=== PATIENT | male | born 1945 | race Caucasian/White ===

== ENCOUNTER → 2018-03-10 | Outpatient (CLI) | payer MEDICARE ==
[~2018-03-10] MED LIST: ALBU8.5H8 INH; ASPI-496 PO; GUAI400T66 PO; LANS30CA PO; LISI-167 PO; LISI5TAB7 PO; LORA10TA75 PO; MULT-717 PO; SUCR1TAB PO
[2018-03-10 15:01] LABS: ALANINE AMINOTRANSFERASE 36 U/L (12-78); ALBUMIN 3.9 g/dL (3.4-5.0); ANION GAP 5 mmol/L (5-15); CALCIUM 9.4 mg/dL (8.5-10.1); CHLORIDE 108 mmol/L (98-107); CREATININE 1.06 mg/dL (0.7-1.3)
[2018-03-10 15:04] LABS: ALKALINE PHOSPHATASE 72 U/L (45-117); BILIRUBIN,TOTAL 0.4 mg/dL (0.2-1.0); TOTAL PROTEIN 7.4 g/dL (6.4-8.2)
== END | disposition home or self-care (01) ==
LOC: STAR 13:41
PROVIDERS: ATTEND Orthopaedic Surgery
DX: Z01.818 Encounter for other preprocedural examination (principal); M65.341 Trigger finger, right ring finger; G56.01 Carpal tunnel syndrome, right upper limb
CPT/HCPCS: 36415; 80053; 93005

== ENCOUNTER 2018-03-20 10:53 | Day surgery (SDC) | payer MEDICARE ==
[~2018-03-20] VITALS: Ht 175.3 cm; Wt 85.2 kg
[2018-03-20 11:22] VITALS: BP 146/81
[2018-03-20] MEDS ORDERED: LACTATED RINGERS 1,000 ML IV SCH (11:26)
[2018-03-20] MEDS ORDERED: LIDOCAINE/PF 1%, 30ML ONE (12:35)
[2018-03-20] MEDS ORDERED: BUPIVACAINE/PF 0.5% ONE (12:35)
[2018-03-20] MEDS ORDERED: MIDAZOLAM 1 MG/ML, 2ML ONE (12:57)
[2018-03-20] MEDS ORDERED: FENTANYL PF 100 MCG/2ML ONE (12:57)
[2018-03-20] MEDS ORDERED: OXYcodone 5 MG/5 ML ORAL.SOL UDC ONE (13:54)
[2018-03-20] MEDS ORDERED: ACETAMINOPHEN 650 MG/20.3 ML UDC ONE (13:54)
[2018-03-20] MEDS ORDERED: OXYcodone 5 MG/5 ML ORAL.SOL UDC PO PRN (14:00)
[2018-03-20] MEDS ORDERED: ONDANSETRON ODT 8 MG PO PRN (14:00)
[2018-03-20] MEDS ORDERED: FENTANYL PF 100 MCG/2ML IV PRN (14:00)
[2018-03-20] MEDS ORDERED: ACETAMINOPHEN 325 MG TABLET PO PRN (14:00)
[2018-03-20] MEDS ORDERED: PROPOFOL 10 MG/ML, 20ML ONE (15:38)
== END 2018-03-20 15:30 | disposition home or self-care (01) ==
LOC: OUT 10:53
PROVIDERS: ATTEND Orthopaedic Surgery
DX: G56.01 Carpal tunnel syndrome, right upper limb (principal); M65.341 Trigger finger, right ring finger; J45.909 Unspecified asthma, uncomplicated; K21.9 Gastro-esophageal reflux disease without esophagitis; I10 Essential (primary) hypertension; Z87.39 Personal history of other diseases of the musculoskeletal system and connective tissue; Z98.890 Other specified postprocedural states; Z79.82 Long term (current) use of aspirin; Z79.899 Other long term (current) drug therapy; Z95.2 Presence of prosthetic heart valve
CPT/HCPCS: 26055; 29848; J2250; J2704; J3010; J3490

== ENCOUNTER 2018-05-07 17:32 | Emergency (ER) | payer MEDICARE ==
[~2018-05-07] VITALS: Ht 175.3 cm; Wt 83.0 kg
[2018-05-07] MEDS ORDERED: SODIUM CHLORIDE FLUSH 10ML SYR IVF ONE (18:30)
[2018-05-07 18:35] LABS: BASOPHILS # (AUTO) 0.03 x10^3/uL (0-0.1); BASOPHILS % (AUTO) 0 % (0-1); EOSINOPHILS # (AUTO) 0.07 x10^3/uL (0-0.4); EOSINOPHILS % (AUTO) 0 % (1-7); LYMPHOCYTES # (AUTO) 1.16 x10^3/uL (1-3.4); LYMPHOCYTES % (AUTO) 7 % (22-44); MD NO; MEAN CORPUSCULAR HEMOGLOBIN 31.3 pg (27.5-34.5); MEAN CORPUSCULAR HGB CONC 33.4 g/dL (33.2-36.2); MEAN CORPUSCULAR VOLUME 93.8 fL (81-97); MEAN PLATELET VOLUME 8.1 fL (7.4-10.4); MONOCYTES # (AUTO) 0.68 x10^3/uL (0.2-0.8); MONOCYTES % (AUTO) 4 % (2-9); NEUTROPHILS # (AUTO) 15.04 x10^3/uL (1.8-6.8); NEUTROPHILS % (AUTO) 89 % (42-75); PLATELET COUNT 234 x10^3/uL (130-400); RED BLOOD COUNT 5.46 x10^6/uL (4.38-5.82)
[2018-05-07 18:46] LABS: ALANINE AMINOTRANSFERASE 40 U/L (12-78); ALBUMIN 3.8 g/dL (3.4-5.0); ANION GAP 8 mmol/L (5-15); CHLORIDE 109 mmol/L (98-107); CREATININE 1.16 mg/dL (0.7-1.3)
[2018-05-07 18:48] LABS: ALKALINE PHOSPHATASE 80 U/L (45-117); BILIRUBIN,TOTAL 0.8 mg/dL (0.2-1.0); TOTAL PROTEIN 7.5 g/dL (6.4-8.2)
[2018-05-07 19:46] VITALS: BP 128/78
== END 2018-05-07 19:48 | disposition home or self-care (01) ==
LOC: ED 19:33
DX: K64.4 Residual hemorrhoidal skin tags (principal); K21.9 Gastro-esophageal reflux disease without esophagitis; Z95.2 Presence of prosthetic heart valve
CPT/HCPCS: 36415; 80053; 85025; 93005; 99285

== ENCOUNTER → 2018-06-15 | Outpatient (CLI) | payer MEDICARE | END | disposition home or self-care (01) | LOC: CFH 12:40 | PROVIDERS: ATTEND Internal Medicine Cardiovascular Disease | DX: I07.1 Rheumatic tricuspid insufficiency (principal); I10 Essential (primary) hypertension; Z95.2 Presence of prosthetic heart valve | CPT/HCPCS: 93306 ==

== ENCOUNTER → 2019-06-14 | Outpatient (CLI) | payer MEDICARE ==
[~2019-06-14] MED LIST changes: +FLUT200B INH; +LEVA15HF5 INH; +OMEP-110 PO; +TIOT18CA INH
[2019-06-14 14:37] LABS: ALANINE AMINOTRANSFERASE 31 U/L (12-78); ALBUMIN 3.8 g/dL (3.4-5.0); ANION GAP 5 mmol/L (5-15); CALCIUM 8.9 mg/dL (8.5-10.1); CHLORIDE 112 mmol/L (98-107); CREATININE 1.13 mg/dL (0.7-1.3)
[2019-06-14 14:40] LABS: ALKALINE PHOSPHATASE 75 U/L (45-117); BILIRUBIN,TOTAL 0.6 mg/dL (0.2-1.0); TOTAL PROTEIN 6.9 g/dL (6.4-8.2)
== END | disposition home or self-care (01) ==
LOC: STAR 13:27
PROVIDERS: ATTEND Thoracic Surgery (Cardiothoracic Vascular Surgery)
DX: I45.10 Unspecified right bundle-branch block (principal); I44.4 Left anterior fascicular block; Z83.3 Family history of diabetes mellitus; Z82.49 Family history of ischemic heart disease and other diseases of the circulatory system
CPT/HCPCS: 36415; 80053; 93005

== ENCOUNTER 2019-08-18 17:47 | Emergency (ER) | payer MEDICARE ==
[~2019-08-18] VITALS: Ht 175.3 cm; Wt 84.3 kg
[2019-08-18] MEDS ORDERED: ADENOSINE 6 MG/2 ML ONE (18:24)
[2019-08-18] MEDS ORDERED: ADENOSINE 6 MG/2 ML IVPush ONE ×2 (18:30)
[2019-08-18] MEDS ORDERED: SODIUM CHLORIDE 0.9% 1,000ML IVBOLUS ONE (18:30)
[2019-08-18] MEDS ORDERED: SODIUM CHLORIDE FLUSH 10ML SYR IVF ONE (18:30)
[2019-08-18] MEDS ORDERED: DILTIAZEM 5 MG/ML, 10ML ONE (18:47)
[2019-08-18] MEDS ORDERED: PROPOFOL 10 MG/ML, 20ML ONE (18:47)
--- NOTE | 2019-08-18 18:50 | NUR ---
report given to kimmie
[2019-08-18 18:59] LABS: BASOPHILS # (AUTO) 0.08 x10^3/uL (0-0.1); BASOPHILS % (AUTO) 1 % (0-1); EOSINOPHILS # (AUTO) 0.22 x10^3/uL (0-0.4); EOSINOPHILS % (AUTO) 2 % (1-7); LYMPHOCYTES # (AUTO) 2.22 x10^3/uL (1-3.4); LYMPHOCYTES % (AUTO) 17 % (22-44); MD NO; MEAN CORPUSCULAR HEMOGLOBIN 31.3 pg (27.5-34.5); MEAN CORPUSCULAR VOLUME 94.6 fL (81-97); MEAN PLATELET VOLUME 8.5 fL (7.4-10.4); MONOCYTES # (AUTO) 0.67 x10^3/uL (0.2-0.8); MONOCYTES % (AUTO) 5 % (2-9); NEUTROPHILS # (AUTO) 10.06 x10^3/uL (1.8-6.8); NEUTROPHILS % (AUTO) 76 % (42-75); PLATELET COUNT 263 x10^3/uL (130-400); RED BLOOD COUNT 5.31 x10^6/uL (4.38-5.82); RED CELL DISTRIBUTION WIDTH 14.2 % (9.4-14.8)
[2019-08-18] MEDS ORDERED: DILTIAZEM 5 MG/ML, 5ML IVPush ONE (19:00)
[2019-08-18] MEDS ORDERED: PROPOFOL 10 MG/ML, 20ML IVPush ONE (19:00)
[2019-08-18 19:01] LABS: ALANINE AMINOTRANSFERASE 40 U/L (12-78); ANION GAP 9 mmol/L (5-15); CHLORIDE 106 mmol/L (98-107); CREATININE 1.15 mg/dL (0.7-1.3)
[2019-08-18 19:03] LABS: ALKALINE PHOSPHATASE 78 U/L (45-117); BILIRUBIN,TOTAL 0.6 mg/dL (0.2-1.0); TOTAL PROTEIN 7.5 g/dL (6.4-8.2)
[2019-08-18 19:07] LABS: INTERNATIONAL NORMALIZED RATIO 1.01 (0.93-1.1); PROTHROMBIN TIME 10.6 Seconds (9.6-11.5)
[2019-08-18 19:14] VITALS: BP 122/89
--- NOTE | 2019-08-18 19:23 | NUR ---
ASSUMED CARE OF PT S/P CARDIOVERSION. PT CURRENTLY A&O X 4, DENIES C/O PAIN, DENIES FEELING "THAT HEAVY FEELING IN MY CHEST." PT CURRENTLY ON 2L OXYGEN, REMAINS ON [employer]PER[employer]OR [employer] AT THIS TIME.
--- NOTE | 2019-08-18 19:26 | NUR ---
PT RESTING QUIETLY AT THIS TIME, TALKING TO SPOUSE WITHOUT DIFFICULTY.
[2019-08-18] MEDS ORDERED: APIXABAN 5 MG TABLET PO ONE (19:30)
[2019-08-18] MEDS ORDERED: APIXABAN 5 MG TABLET ONE (19:47)
--- NOTE | 2019-08-18 19:50 | NUR ---
PT MEDICATED ORDERED. PT PLACED ON RA. CONTINUES TO DENY C/O PAIN AT THIS TIME.
--- NOTE | 2019-08-18 19:56 | NUR ---
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 SUCTION ON AND READY FOR USE. PLACED ON 4L OXYGEN W/ ET CO2 IN PLACE. PIV PATENT AND FLUSHING WELL. SPOUSE PREFERS TO REMAIN IN ROOM W/ PT. 1903: PT GIVEN PROPOFOL 50MG BY ERP 1904: PT GIVEN PROPOFOL 15MG BY ERP 1906: SYNCHRONIZED CARDIOVERSION AT 150J PER ERP V.O. 1907: CYBER SYSTEMS ADMINISTRATOR SHOWS SR, CONFIRMED BY ERP 1912: PT AWAKE, ALERT AND ORIENTED X 4
--- NOTE | 2019-08-18 20:22 | NUR ---
PT DENIES C/O PAIN, DENIES FEELING SHORT OF BREATH. REVIEWED DISCHARGE INSTRUCTIONS AND PRESCRIPTIONS W/ PT AND SPOUSE, VERBALIZED UNDERSTANDING TO INFORMATION PROVIDED INCLUDING FOLLOW UP CARE, RETURN PRECAUTIONS AND PRECAUTIONS W/ MEDICATIONS. PT REPORTS HX OF ELIQUIS AND IS AWARE OF SAFETY PRECATUIONS. DISCUSSED POST-SEDATION PRECAUTIONS W/ SPOUSE, VERBALIZED UNDERSTANDING TO INFORMATION PROVIDED. PT AND SPOUSE DENIED QUESTIONS/CONCERNS. PT ABLE TO DRINK WATER WITHOUT DIFFICULTY, AMBULATED FROM ED W/ SPOUSE WITHOUT ANY DIFFICULTY NOTED.
== END 2019-08-18 20:26 | disposition home or self-care (01) ==
LOC: ED 20:00
DX: I48.92 Unspecified atrial flutter (principal); I10 Essential (primary) hypertension; K21.9 Gastro-esophageal reflux disease without esophagitis; Z98.61 Coronary angioplasty status
CPT/HCPCS: 36415; 71045; 80053; 85025; 85610; 85730; 92960; 93005; 96374; 96375; 99285; J0153; J2704; J7030; 99284

== ENCOUNTER 2019-10-10 18:55 | Observation (INO) | payer MEDICARE ==
[~2019-10-10] VITALS: Ht 175.3 cm; Wt 86.5 kg
[2019-10-10 11:39] VITALS: BP_SYST 127; BP_SYST 130; BP_SYST 147; BP_DIAS 86; BP_DIAS 98
[~2019-10-10 18:55] MED LIST changes: -GUAI400T66 PO; +GUAI400T81 PO
--- NOTE | 2019-10-10 19:19 | NUR ---
Pt came in for "passing out" episode, pt is awake, alert and oriented x4, asked for O2, states he feels he needs oxygen. Placed 2L NC, vitals monitors placed. Pt to CT.
[2019-10-10] MEDS ORDERED: DILT120C64 PO (20:05)
[2019-10-10] MEDS ORDERED: LISI-167 PO (20:05)
[2019-10-10] MEDS ORDERED: FLUT50BL INH (20:05)
--- NOTE | 2019-10-10 20:36 | NUR ---
IV placed. Pt resting in [facility] in no acute distress, spouse at bedside. Call light within reach.
[2019-10-10 20:37] LABS: BASOPHILS # (AUTO) 0.03 x10^3/uL (0-0.1); BASOPHILS % (AUTO) 0 % (0-1); EOSINOPHILS # (AUTO) 0.07 x10^3/uL (0-0.4); EOSINOPHILS % (AUTO) 1 % (1-7); LYMPHOCYTES # (AUTO) 1.06 x10^3/uL (1-3.4); LYMPHOCYTES % (AUTO) 7 % (22-44); MD NO; MEAN CORPUSCULAR HEMOGLOBIN 31.7 pg (27.5-34.5); MEAN CORPUSCULAR HGB CONC 33.3 g/dL (33.2-36.2); MEAN CORPUSCULAR VOLUME 95.1 fL (81-97); MEAN PLATELET VOLUME 7.8 fL (7.4-10.4); MONOCYTES # (AUTO) 0.53 x10^3/uL (0.2-0.8); MONOCYTES % (AUTO) 4 % (2-9); NEUTROPHILS # (AUTO) 12.95 x10^3/uL (1.8-6.8); NEUTROPHILS % (AUTO) 89 % (42-75); PLATELET COUNT 218 x10^3/uL (130-400); RED BLOOD COUNT 4.91 x10^6/uL (4.38-5.82); RED CELL DISTRIBUTION WIDTH 14.3 % (9.4-14.8)
[2019-10-10 20:43] LABS: ALANINE AMINOTRANSFERASE 34 U/L (12-78); ALBUMIN 3.5 g/dL (3.4-5.0); ANION GAP 8 mmol/L (5-15); CALCIUM 9.1 mg/dL (8.5-10.1); CHLORIDE 107 mmol/L (98-107); CREATININE 1.01 mg/dL (0.7-1.3)
[2019-10-10 20:44] LABS: D-DIMER 0.73 ug/mlFEU (0.00-0.52); INTERNATIONAL NORMALIZED RATIO 1.01 (0.93-1.1); PROTHROMBIN TIME 10.7 Seconds (9.6-11.5)
[2019-10-10 20:48] LABS: ALKALINE PHOSPHATASE 59 U/L (45-117); BILIRUBIN,TOTAL 0.4 mg/dL (0.2-1.0); TOTAL PROTEIN 6.7 g/dL (6.4-8.2); TROPONIN I < 0.015 ng/mL (0.000-0.045)
--- NOTE | 2019-10-10 21:28 | NUR ---
Pt to CT.
--- NOTE | 2019-10-10 22:44 | NUR ---
Report given to Edwige NAIK.
[2019-10-10] MEDS ORDERED: ACETAMINOPHEN 325 MG TABLET PO PRN (23:00)
[2019-10-10] MEDS ORDERED: ONDANSETRON ODT 4 MG PO PRN (23:00)
[2019-10-10] MEDS ORDERED: BISACODYL 10 MG SUPP PR PRN (23:00)
[2019-10-10] MEDS ORDERED: POLYETHYLENE GLYCOL 17 GM PACKET PO PRN (23:00)
[2019-10-10] MEDS ORDERED: LEVALBUTEROL TARTRATE 0.63 MG INH SCH (23:00)
[2019-10-10] MEDS ORDERED: LISINOPRIL 10 MG TABLET PO SCH (23:00)
[2019-10-10] MEDS ORDERED: OMNIPAQUE 350 MG/ML, 100ML BOTTLE ONE (23:51)
[2019-10-10] MEDS: SODIUM CHLORIDE FLUSH 10ML SYR IVF SCH (23:59)
[2019-10-11] VITALS (8 sets, daily range): BP systolic 127–147; BP diastolic 79–94
[2019-10-11] MEDS ORDERED: ALBUTEROL/IPRATROPIUM 2.5MG/0.5MG, 3 ML NPPB PRN (01:30)
[2019-10-11] MEDS ORDERED: PROAIR INH PRN (01:30)
[2019-10-11 01:53] LABS: BASOPHILS # (AUTO) 0.03 x10^3/uL (0-0.1); BASOPHILS % (AUTO) 0 % (0-1); EOSINOPHILS # (AUTO) 0.11 x10^3/uL (0-0.4); EOSINOPHILS % (AUTO) 1 % (1-7); LYMPHOCYTES # (AUTO) 1.67 x10^3/uL (1-3.4); LYMPHOCYTES % (AUTO) 16 % (22-44); MD NO; MEAN CORPUSCULAR HEMOGLOBIN 31.7 pg (27.5-34.5); MEAN CORPUSCULAR HGB CONC 33.8 g/dL (33.2-36.2); MEAN CORPUSCULAR VOLUME 94.1 fL (81-97); MEAN PLATELET VOLUME 7.4 fL (7.4-10.4); MONOCYTES # (AUTO) 0.58 x10^3/uL (0.2-0.8); MONOCYTES % (AUTO) 6 % (2-9); NEUTROPHILS # (AUTO) 7.88 x10^3/uL (1.8-6.8); NEUTROPHILS % (AUTO) 77 % (42-75); PLATELET COUNT 219 x10^3/uL (130-400); RED BLOOD COUNT 4.76 x10^6/uL (4.38-5.82); RED CELL DISTRIBUTION WIDTH 14.4 % (9.4-14.8)
[2019-10-11 02:08] LABS: TROPONIN I < 0.015 ng/mL (0.000-0.045)
[2019-10-11 03:08] LABS: ANION GAP 8 mmol/L (5-15); CALCIUM 9.3 mg/dL (8.5-10.1); CHLORIDE 108 mmol/L (98-107); CREATININE 0.96 mg/dL (0.7-1.3)
[2019-10-11] MEDS: SODIUM CHLORIDE FLUSH 10ML SYR IVF SCH (08:06)
[2019-10-11 08:22] LABS: TROPONIN I < 0.015 ng/mL (0.000-0.045)
[2019-10-11] MEDS ORDERED: LORATADINE 10 MG TABLET PO SCH (09:00)
[2019-10-11] MEDS ORDERED: SENNA/DOCUSATE TABLET PO SCH (09:00)
[2019-10-11] MEDS ORDERED: MULTIVITAMINS/MINERALS TABLET PO SCH (09:00)
[2019-10-11] MEDS ORDERED: ASPIRIN 81 MG TABLET EC PO SCH (09:00)
[2019-10-11] MEDS ORDERED: DILTIAZEM 120 MG CAP.ER.24H PO SCH (09:00)
[2019-10-11] MEDS ORDERED: BUDESONIDE 0.5 MG/2 ML INHA NPPB SCH (09:00)
== END 2019-10-11 18:31 | disposition home or self-care (01) ==
LOC: ED 21:17 → INTOOBSV 22:09 → EDIP 22:09 → 4WST 23:22
PROVIDERS: ADMIT Family Medicine; ATTEND Family Medicine
DX: R55 Syncope and collapse (principal); D72.829 Elevated white blood cell count, unspecified; I48.0 Paroxysmal atrial fibrillation; I10 Essential (primary) hypertension; D68.69 Other thrombophilia; R42 Dizziness and giddiness; I71.9 Aortic aneurysm of unspecified site, without rupture; J45.909 Unspecified asthma, uncomplicated; Z95.2 Presence of prosthetic heart valve; Z79.82 Long term (current) use of aspirin; Z79.899 Other long term (current) drug therapy
CPT/HCPCS: 36415; 70450; 70551; 71275; 72125; 80048; 80053; 84484; 85025; 85379; 85610; 85730; 93005; 93880; 94640; 99285; G0378; J7626; Q9967

== ENCOUNTER 2020-09-27 14:39 | Observation (INO) | payer MEDICARE ==
[~2020-09-27] VITALS: Ht 175.3 cm; Wt 88.0 kg
[~2020-09-27 14:39] MED LIST changes: +DILT120C64 PO; +FLUT50BL INH
[2020-09-27 15:31] LABS: BASOPHILS % (AUTO) 1 % (0-1); EOSINOPHILS % (AUTO) 1 % (1-7); LYMPHOCYTES % (AUTO) 11 % (22-44); MEAN CORPUSCULAR HGB CONC 33.6 g/dL (33.2-36.2); MEAN PLATELET VOLUME 7.6 fL (7.4-10.4); MONOCYTES % (AUTO) 7 % (2-9); NEUTROPHILS % (AUTO) 81 % (42-75); PLATELET COUNT 249 x10^3/uL (130-400); RED BLOOD COUNT 5.08 x10^6/uL (4.38-5.82); RED CELL DISTRIBUTION WIDTH 13.5 % (9.4-14.8)
[2020-09-27 15:32] LABS: MD NO
[2020-09-27 15:39] LABS: ALBUMIN 3.9 g/dL (3.4-5.0); ANION GAP 9 mmol/L (5-15); CALCIUM 8.9 mg/dL (8.5-10.1); CHLORIDE 105 mmol/L (98-107)
[2020-09-27 15:44] LABS: CREATININE 1.11 mg/dL (0.7-1.3); TROPONIN I < 0.015 ng/mL (0.000-0.045)
--- NOTE | 2020-09-27 16:06 | NUR ---
senior packaging engineer: pt from lobby to room 18
--- NOTE | 2020-09-27 16:18 | NUR ---
PT WAS OUTSIDE W . PT STATES HE PASSED OUT SITTING IN CHAIR. NO FALL. DENIES CP OR N/V. STATES THIS HAPPENED LAST YEAR. HX OF ASTHMA AND ALLERGIES. ON STORE SALES CONSULTANT.
--- NOTE | 2020-09-27 17:30 | NUR ---
PT RESTING, POC FOR ADMIT. DENIES CP OR DIZZYNESS
[2020-09-27] MEDS ORDERED: BUDE10.2 PO (17:42)
[2020-09-27] MEDS ORDERED: OMEP20CA20 PO (17:42)
[2020-09-27] MEDS ORDERED: GUAI12009 PO (17:42)
[2020-09-27] MEDS ORDERED: TAMS-11 PO (17:42)
--- NOTE | 2020-09-27 18:42 | NUR ---
[facility] AT BEDSIDE.
--- NOTE | 2020-09-27 18:47 | NUR ---
BEDSIDE REPORT RECEIVED FROM LEIDY NAIK
--- NOTE | 2020-09-27 19:04 | NUR ---
HOSPITALIST AT BEDSIDE
[2020-09-27 19:28] VITALS: BP 134/91
[2020-09-27] MEDS ORDERED: ACETAMINOPHEN 325 MG TABLET PO PRN (19:30)
[2020-09-27] MEDS ORDERED: GUAIFENESIN/DM 200-20MG, 10ML UDC PO PRN (19:30)
[2020-09-27 19:35] VITALS: BP_SYST 108; BP_SYST 110; BP_SYST 139; BP_DIAS 76; BP_DIAS 78; BP_DIAS 87
[2020-09-27] MEDS ORDERED: ENOXAPARIN 40 MG/0.4 ML SQ SCH (20:00)
[2020-09-27 20:32] LABS: TROPONIN I < 0.015 ng/mL (0.000-0.045)
[2020-09-27] MEDS: FAMOTIDINE 20 MG TABLET PO SCH (21:00)
[2020-09-27 21:43] VITALS: BP 134/91
[2020-09-27] MEDS ORDERED: ALBUTEROL HFA 90 MCG/SPRAY INH PRN (23:00)
[2020-09-28 01:32] VITALS: BP_SYST 115; BP_SYST 128; BP_SYST 133; BP_DIAS 33; BP_DIAS 74; BP_DIAS 88
[2020-09-28 01:55] LABS: TROPONIN I < 0.015 ng/mL (0.000-0.045)
[2020-09-28 05:44] LABS: BASOPHILS % (AUTO) 1 % (0-1); EOSINOPHILS % (AUTO) 2 % (1-7); LYMPHOCYTES % (AUTO) 20 % (22-44); MEAN CORPUSCULAR HGB CONC 33.4 g/dL (33.2-36.2); MEAN PLATELET VOLUME 7.7 fL (7.4-10.4); MONOCYTES % (AUTO) 7 % (2-9); NEUTROPHILS % (AUTO) 71 % (42-75); PLATELET COUNT 233 x10^3/uL (130-400); RED BLOOD COUNT 4.86 x10^6/uL (4.38-5.82); RED CELL DISTRIBUTION WIDTH 13.8 % (9.4-14.8)
[2020-09-28 05:48] LABS: MD NO
[2020-09-28 05:57] LABS: CHLORIDE 110 mmol/L (98-107)
[2020-09-28 06:14] LABS: ALANINE AMINOTRANSFERASE 27 U/L (12-78); ALBUMIN 3.3 g/dL (3.4-5.0); ALKALINE PHOSPHATASE 83 U/L (45-117); ANION GAP 7 mmol/L (5-15); BILIRUBIN,TOTAL 0.5 mg/dL (0.2-1.0); CALCIUM 9.3 mg/dL (8.5-10.1); CREATININE 0.99 mg/dL (0.7-1.3); TOTAL PROTEIN 6.4 g/dL (6.4-8.2)
[2020-09-28] MEDS ORDERED: OMEPRAZOLE 20 MG CAPSULE.DR PO SCH (07:00)
[2020-09-28 07:10] VITALS: BP 131/87
[2020-09-28] MEDS: FAMOTIDINE 20 MG TABLET PO SCH (08:13)
[2020-09-28 08:30] VITALS: BP 134/92
[2020-09-28 08:35] VITALS: BP 144/88
[2020-09-28 08:40] VITALS: BP 118/85
[2020-09-28] MEDS ORDERED: TAMSULOSIN 0.4 MG CAP.ER.24H PO SCH (09:00)
[2020-09-28] MEDS ORDERED: LISINOPRIL 10 MG TABLET PO SCH ×2 (09:00)
[2020-09-28] MEDS ORDERED: ASPIRIN 81 MG TABLET EC PO SCH (09:00)
[2020-09-28] MEDS ORDERED: FLUTICASONE/VILANTEROL 100-25MCG/INH INH SCH (09:00)
[2020-09-28] MEDS ORDERED: TIOTROPIUM BROMIDE 18 MCG/INH INH SCH (09:00)
[2020-09-28] MEDS ORDERED: LORATADINE 10 MG TABLET PO SCH (09:00)
[2020-09-28 13:25] VITALS: BP 130/80
== END 2020-09-28 14:50 | disposition home or self-care (01) ==
LOC: ED 17:04 → INTOOBSV 17:41 → EDIP 17:41 → 5SO 19:19 → DCLOUNGE 09-28 14:42
PROVIDERS: ADMIT Internal Medicine; ATTEND Internal Medicine
DX: R55 Syncope and collapse (principal); D72.829 Elevated white blood cell count, unspecified; I10 Essential (primary) hypertension; G43.109 Migraine with aura, not intractable, without status migrainosus; J45.909 Unspecified asthma, uncomplicated; K21.9 Gastro-esophageal reflux disease without esophagitis; I49.3 Ventricular premature depolarization; I48.92 Unspecified atrial flutter; H54.7 Unspecified visual loss; Z95.3 Presence of xenogenic heart valve; Z79.82 Long term (current) use of aspirin; Z79.899 Other long term (current) drug therapy; Z87.891 Personal history of nicotine dependence; Z86.79 Personal history of other diseases of the circulatory system; Z87.19 Personal history of other diseases of the digestive system
CPT/HCPCS: 36415; 71045; 80048; 80053; 82040; 83735; 83880; 84100; 84443; 84484; 85025; 93005; 93306; 96372; 99285; G0378; J1650

== ENCOUNTER 2020-10-11 13:11 | Emergency (ER) | payer MEDICARE ==
[~2020-10-11] VITALS: Ht 175.3 cm; Wt 97.8 kg
[~2020-10-11 13:11] MED LIST changes: +BUDE10.2 PO; +GUAI12009 PO; +OMEP20CA20 PO; +TAMS-11 PO
--- NOTE | 2020-10-11 13:51 | NUR ---
culinary intern: pt from lobby to room 38
--- NOTE | 2020-10-11 14:06 | NUR ---
PT BROUGHT TO ROOM. WITH . STATES HE HAS HAD SYNCOPE EPISOIDES IN THE PAST.
[2020-10-11] MEDS ORDERED: DIPH,PERTUSS(ACELL),TET VAC/PF 0.5 ML IM-VACC ONE ×2 (14:28→14:30)
[2020-10-11] MEDS ORDERED: LIDOCAINE-MPF 1%, 5ML ONE (14:28)
[2020-10-11] MEDS ORDERED: LIDOCAINE-MPF 1%, 5ML INFIL ONE (14:30)
[2020-10-11] MEDS ORDERED: L.E.T SOLUTION TP ONE (14:30)
--- NOTE | 2020-10-11 14:35 | NUR ---
LABS DRAWN. Devyn ON L EYELASH
--- NOTE | 2020-10-11 14:39 | NUR ---
PT IN BED NO DISTRESS
--- NOTE | 2020-10-11 14:51 | NUR ---
back from ct now
[2020-10-11 14:57] LABS: ALBUMIN 3.7 g/dL (3.4-5.0); ANION GAP 8 mmol/L (5-15); CHLORIDE 109 mmol/L (98-107)
[2020-10-11 15:00] LABS: ALANINE AMINOTRANSFERASE 30 U/L (12-78); ALKALINE PHOSPHATASE 86 U/L (45-117); BILIRUBIN,TOTAL 0.7 mg/dL (0.2-1.0); CREATININE 1.04 mg/dL (0.7-1.3); TOTAL PROTEIN 6.9 g/dL (6.4-8.2)
--- NOTE | 2020-10-11 15:28 | NUR ---
PT IN BED. AT BEDSIDE
[2020-10-11 15:38] LABS: BASOPHILS % (AUTO) 1 % (0-1); EOSINOPHILS % (AUTO) 1 % (1-7); LYMPHOCYTES % (AUTO) 12 % (22-44); MEAN CORPUSCULAR HEMOGLOBIN 31.1 pg (27.5-34.5); MEAN CORPUSCULAR HGB CONC 33.4 g/dL (33.2-36.2); MONOCYTES % (AUTO) 6 % (2-9); NEUTROPHILS % (AUTO) 81 % (42-75); PLATELET COUNT 254 x10^3/uL (130-400); RED BLOOD COUNT 4.98 x10^6/uL (4.38-5.82); RED CELL DISTRIBUTION WIDTH 14.3 % (9.4-14.8)
[2020-10-11 15:40] LABS: MD NO
[2020-10-11] MEDS ORDERED: NEOSPORIN OINT. PKT 1 PACKET ONE ×3 (16:00→16:12)
--- NOTE | 2020-10-11 16:18 | NUR ---
PT IN BED, SURTURES DONE AT BEDSIDE BY STEPHEN.
[2020-10-11 16:44] VITALS: BP 149/83
== END 2020-10-11 17:57 | disposition home or self-care (01) ==
LOC: ED 17:20
DX: S01.111A Laceration without foreign body of right eyelid and periocular area, initial encounter (principal); R55 Syncope and collapse; I10 Essential (primary) hypertension; I48.92 Unspecified atrial flutter; R07.9 Chest pain, unspecified; Z95.2 Presence of prosthetic heart valve; W01.0XXA Fall on same level from slipping, tripping and stumbling without subsequent striking against object, initial encounter; Y93.89 Activity, other specified; Y92.009 Unspecified place in unspecified non-institutional (private) residence as the place of occurrence of the external cause; Y99.8 Other external cause status
CPT/HCPCS: 12052; 36415; 70450; 71045; 80053; 85025; 90471; 90715; 93005; 99285

== ENCOUNTER 2020-10-23 10:51 | Day surgery (SDC) | payer MEDICARE ==
[~2020-10-23] VITALS: Ht 175.3 cm; Wt 86.4 kg
[2020-10-23] MEDS ORDERED: LIDOCAINE 2%, 20ML ONE (11:29)
== END 2020-10-23 13:29 | disposition home or self-care (01) ==
LOC: CACL 10:51
PROVIDERS: ATTEND Internal Medicine Cardiovascular Disease
DX: R55 Syncope and collapse (principal); I10 Essential (primary) hypertension; Z79.82 Long term (current) use of aspirin; Z79.899 Other long term (current) drug therapy; Z91.048 Other nonmedicinal substance allergy status; Z95.2 Presence of prosthetic heart valve
CPT/HCPCS: 33285; C1764

== ENCOUNTER 2020-12-30 01:36 | Emergency (ER) | payer MEDICARE ==
[~2020-12-30] VITALS: Ht 175.3 cm; Wt 89.4 kg
[2020-12-30 01:40] VITALS: BP 96/61
[2020-12-30] MEDS ORDERED: PROPOFOL 10 MG/ML, 20ML IVPush ONE (02:00)
[2020-12-30] MEDS ORDERED: SODIUM CHLORIDE 0.9% 1,000 ML IV ONE (02:00)
[2020-12-30] MEDS ORDERED: SODIUM CHLORIDE FLUSH 10ML SYR IVF ONE (02:00)
[2020-12-30 02:24] LABS: BASOPHILS % (AUTO) 1 % (0-1); EOSINOPHILS % (AUTO) 1 % (1-7); LYMPHOCYTES % (AUTO) 18 % (22-44); MEAN CORPUSCULAR HEMOGLOBIN 31.1 pg (27.5-34.5); MEAN PLATELET VOLUME 7.8 fL (7.4-10.4); MONOCYTES % (AUTO) 7 % (2-9); NEUTROPHILS % (AUTO) 73 % (42-75); PLATELET COUNT 251 x10^3/uL (130-400); RED BLOOD COUNT 4.99 x10^6/uL (4.38-5.82); RED CELL DISTRIBUTION WIDTH 14.6 % (9.4-14.8)
[2020-12-30 02:29] LABS: MD NO
[2020-12-30] MEDS ORDERED: PROPOFOL 10 MG/ML, 20ML ONE (02:29)
[2020-12-30 02:34] LABS: ALANINE AMINOTRANSFERASE 32 U/L (12-78); ALBUMIN 3.5 g/dL (3.4-5.0); ANION GAP 6 mmol/L (5-15); CALCIUM 9.4 mg/dL (8.5-10.1); CHLORIDE 109 mmol/L (98-107); CREATININE 1.26 mg/dL (0.7-1.3)
[2020-12-30 02:44] LABS: ALKALINE PHOSPHATASE 73 U/L (45-117); BILIRUBIN,TOTAL 0.3 mg/dL (0.2-1.0); T4 (THYROXINE) 9.3 mcg/dL (4.5-12.1); TOTAL PROTEIN 6.8 g/dL (6.4-8.2)
--- NOTE | 2020-12-30 02:45 | NUR ---
PT PLACED ON COMPLETE CR MONITOR AFTER PT ARRIVED FOR RAPID HEART RATE. CRASH CART PLACED IN ROOM, DEFIB PADS PLACED ON PT PER PROTOCOL. MD ORDERS RECEIVED, AND PIV STARTED TO LEFT AC X1 18G. PT A&OX4 AT THIS TIME AND IN GOOD SPIRITS.
--- NOTE | 2020-12-30 02:46 | NUR ---
SEE CONSCIOUSS SEDATION SHEETS FOR THE NEXT 30 MIN OF PROCEDURE. PT TOLERATED WELL, PROPOFOL USED FOR SEDATION, IVP BY DR MANCIA, AND PT TOLERATED WELL. PT CARDIOVERTED TWO TIMES AND ON SECOND CARDIOVERSION PT MAINTAINED A HR OF 88. AIRWAY INTACT, AND GOOD AERATION AND OXYGENATION.
--- NOTE | 2020-12-30 03:00 | NUR ---
CARDIOVERSION COMPLETE AND NOW RECOVERING PT. PT HAS TOWEL ROLL PLACED BEHIND SHOULDERS TO MAINTAIN AIRWAY PT WAKES UP. PT TOLERATED AND AIRWAY INTACT. V/S ON SEDATION SHEET.
--- NOTE | 2020-12-30 03:15 | NUR ---
PT WAKING UP AND BEGAN TALKING TO STAFF. PTS BROUGHT BACK INTO ROOM. PT IN GOOD SPIRITS AND HAPPY THINGS WORKED OUT. PER PT, HE STATES HE FELT NOTHING AND REMEMBERS NOTHING OF THE PROCEDURE. IV INTACT, AND 1 LITER NS STARTED TO HELP WITH PTS HYPOTENSION POST PROCEDURE.
--- NOTE | 2020-12-30 03:29 | NUR ---
PTS BP BACK TO BASELINE AT THIS TIME, AND REMAINS ON CR MONITOR, AND WILL MONITOR FOR A WHILE PRIOR TO DC.
--- NOTE | 2020-12-30 04:15 | NUR ---
PT A&OX4 IN STRETCHER IN NO ACUTE DISTRESS. PTS AT BEDSIDE. DR MANCIA TO SPEAK WITH PT. PT PROVIDED WITH F/U AND D/C INSTRUCTIONS AND PRESCRIPTIONS AND HE V/U. PTS PIV D/C'D AND CATH INTACT. PT AMBULATORY AND STEADY, AND STATES HE FEELS WAY BETTER. PT D/C'D WITH NO PROBLEMS.
== END 2020-12-30 04:37 | disposition home or self-care (01) ==
LOC: ED 04:26
DX: I48.91 Unspecified atrial fibrillation (principal); R00.0 Tachycardia, unspecified; R00.2 Palpitations; I10 Essential (primary) hypertension; K21.9 Gastro-esophageal reflux disease without esophagitis; I48.92 Unspecified atrial flutter
CPT/HCPCS: 36415; 80053; 83735; 84436; 84443; 85025; 92960; 93005; 99152; 99153; 99285

== ENCOUNTER 2021-01-07 04:02 | Emergency (ER) | payer MEDICARE ==
[~2021-01-07] VITALS: Ht 175.3 cm; Wt 97.9 kg
[2021-01-07] MEDS ORDERED: PROPOFOL 10 MG/ML, 20ML ONE (04:25)
[2021-01-07] MEDS ORDERED: METOPROLOL 1 MG/ML, 5ML IVPush PRN (04:30)
[2021-01-07] MEDS ORDERED: SODIUM CHLORIDE FLUSH 10ML SYR IVF ONE (04:30)
[2021-01-07] MEDS ORDERED: PROPOFOL 10 MG/ML, 20ML IVPush ONE (04:30)
[2021-01-07 04:45] LABS: BASOPHILS % (AUTO) 1 % (0-1); EOSINOPHILS % (AUTO) 1 % (1-7); LYMPHOCYTES % (AUTO) 17 % (22-44); MD NO; MEAN CORPUSCULAR HEMOGLOBIN 31.7 pg (27.5-34.5); MEAN CORPUSCULAR HGB CONC 33.4 g/dL (33.2-36.2); MEAN PLATELET VOLUME 7.9 fL (7.4-10.4); MONOCYTES % (AUTO) 6 % (2-9); NEUTROPHILS % (AUTO) 76 % (42-75); PLATELET COUNT 266 x10^3/uL (130-400); RED BLOOD COUNT 5.07 x10^6/uL (4.38-5.82); RED CELL DISTRIBUTION WIDTH 14.3 % (9.4-14.8)
[2021-01-07 04:58] LABS: PROTHROMBIN TIME 10.7 Seconds (9.6-11.5)
[2021-01-07 04:59] LABS: ALANINE AMINOTRANSFERASE 40 U/L (12-78); ALBUMIN 3.7 g/dL (3.4-5.0); ANION GAP 7 mmol/L (5-15); CALCIUM 9.3 mg/dL (8.5-10.1); CHLORIDE 110 mmol/L (98-107); CREATININE 0.98 mg/dL (0.7-1.3)
[2021-01-07 05:09] LABS: ALKALINE PHOSPHATASE 73 U/L (45-117); BILIRUBIN,TOTAL 0.4 mg/dL (0.2-1.0)
--- NOTE | 2021-01-07 05:09 | NUR ---
LATE ENTRY DUE TO PT CARE: PT CAME IN IN AFLUTTER, EKG TAKEN IN TRIAGE AND PT WENT BACK TO ROOM. PT HERE LAST WEEK FOR SAME THING AND HAD TO BE CARDIOVERTED. PT ON ELIQUIS SINCE LAST WEEK AND HAS BEEN CONSISTENT TAKING IT. PIV PLACE, LABS DRAWN, PT PLACED ON AS400 ANALYST, CO2, CONTINUOUS PULSE OX, AND BP CUFF EVERY 5 MIN, WELL PADS FOR CARDIOVERSON. DR. MANCIA SPOKE WITH PT AND PT UNSERSTANDING OF RISK/BENEFITS AND SIGNED CONSENT. TOTAL OF 100 MG PROPOFOL ADMIN BY MD AND PT WAS SUCCESSFULLY CARDIOVERTED. SEE PAPERWORK FOR DETAILS ON VITALS AND PROCEDURE. PT RECOVERED WELL AND STATES FEELING MUCH BETTER NOW. PT ON ALL MONITORS STILL AND WILL CONTINUE TO WATCH.
[2021-01-07 05:29] VITALS: BP 96/64
--- NOTE | 2021-01-07 05:30 | NUR ---
WASTED 100 MG PROPOFOL WITH HEENA BHATT. 200 MG PROP RETURED TO OMNICELL
--- NOTE | 2021-01-07 05:40 | NUR ---
Patient and spouse given discharge instructions and they have confirmed that they understand the instructions. Patient ambulatory with steady gait. to drive home
== END 2021-01-07 05:55 | disposition home or self-care (01) ==
LOC: ED 05:25
DX: I48.92 Unspecified atrial flutter (principal); R00.2 Palpitations; I10 Essential (primary) hypertension; R94.31 Abnormal electrocardiogram [ECG] [EKG]
CPT/HCPCS: 36415; 80053; 83735; 84436; 84443; 85025; 85610; 85730; 92960; 93005

== ENCOUNTER 2021-01-27 15:44 | Emergency (ER) | payer MEDICARE ==
[~2021-01-27] VITALS: Ht 175.3 cm; Wt 87.3 kg
--- NOTE | 2021-01-27 16:22 | NUR ---
PT HERE FOR C/O FEELING HEART IS FLUTTERING, PT REPORTS HE'S BEEN IN AFLUTTER 2 TIMES OVER 2 WEEKS, WAS LAST CARDIOVERTED ONE WEEK AGO. PT STATES HE GETS LOSS OF MEMORY WHEN HE FEELS THE FLUTTER COME ON. PT PLACED ON ALL MONITORS. DR. VELARDE AT BEDSIDE FOR EVAL.
--- NOTE | 2021-01-27 16:25 | NUR ---
PT REPORTS FEELING SOB, HX OF ASTHMA.
[2021-01-27] MEDS ORDERED: LORazepam 1MG TABLET ONE (16:41)
[2021-01-27 16:56] LABS: BASOPHILS % (AUTO) 1 % (0-1); EOSINOPHILS % (AUTO) 0 % (1-7); LYMPHOCYTES % (AUTO) 13 % (22-44); MEAN CORPUSCULAR HEMOGLOBIN 31.9 pg (27.5-34.5); MEAN CORPUSCULAR HGB CONC 33.6 g/dL (33.2-36.2); MEAN PLATELET VOLUME 7.7 fL (7.4-10.4); MONOCYTES % (AUTO) 6 % (2-9); NEUTROPHILS % (AUTO) 80 % (42-75); PLATELET COUNT 256 x10^3/uL (130-400); RED BLOOD COUNT 4.87 x10^6/uL (4.38-5.82); RED CELL DISTRIBUTION WIDTH 13.9 % (9.4-14.8)
[2021-01-27] MEDS ORDERED: LORazepam 1MG TABLET PO ONE (17:00)
[2021-01-27 17:01] LABS: ALANINE AMINOTRANSFERASE 30 U/L (12-78); ALBUMIN 3.5 g/dL (3.4-5.0); ANION GAP 6 mmol/L (5-15); CALCIUM 8.9 mg/dL (8.5-10.1); CHLORIDE 109 mmol/L (98-107); CREATININE 0.94 mg/dL (0.7-1.3)
[2021-01-27 17:05] LABS: ALKALINE PHOSPHATASE 62 U/L (45-117); BILIRUBIN,TOTAL 0.5 mg/dL (0.2-1.0); TOTAL PROTEIN 6.8 g/dL (6.4-8.2); TROPONIN I < 0.015 ng/mL (0.000-0.045)
[2021-01-27 17:12] VITALS: BP 134/87
--- NOTE | 2021-01-27 17:13 | NUR ---
PT RESTING ON [place] IN NO OBVIOUS DISTRESS, VSS.
== END 2021-01-27 17:48 | disposition home or self-care (01) ==
LOC: ED 17:40
DX: R06.00 Dyspnea, unspecified (principal); R00.2 Palpitations; R42 Dizziness and giddiness; R94.31 Abnormal electrocardiogram [ECG] [EKG]; I10 Essential (primary) hypertension; K21.9 Gastro-esophageal reflux disease without esophagitis; I48.92 Unspecified atrial flutter
CPT/HCPCS: 36415; 71045; 80053; 83735; 83880; 84484; 85025; 93005; 99285

== ENCOUNTER 2021-02-12 10:10 | Observation (INO) | payer MEDICARE ==
[~2021-02-12] VITALS: Ht 175.3 cm; Wt 86.4 kg
[2021-02-12] MEDS: SODIUM CHLORIDE 0.9% 1,000 ML IV SCH ×2 (11:00→19:15)
[2021-02-12] MEDS ORDERED: TIOT18CA INH (11:02)
[2021-02-12] MEDS ORDERED: IPRA12.9 INH (11:04)
[2021-02-12] MEDS ORDERED: LISI5TAB7 PO (11:04)
[2021-02-12] MEDS ORDERED: APIX5TAB PO (11:14)
[2021-02-12] MEDS ORDERED: CEFAZOLIN PMX 1GM/50ML 50 ML ONE (11:41)
[2021-02-12] MEDS ORDERED: CEFAZOLIN 1,000 MG ONE (11:41)
[2021-02-12] MEDS ORDERED: FENTANYL PF 100 MCG/2ML ONE (11:41)
[2021-02-12] MEDS ORDERED: MIDAZOLAM 1 MG/ML, 2ML ONE ×2 (11:41→12:09)
[2021-02-12] MEDS ORDERED: LIDOCAINE 1%, 20ML ONE (11:41)
[2021-02-12 11:42] LABS: BASOPHILS % (AUTO) 1 % (0-1); EOSINOPHILS % (AUTO) 1 % (1-7); LYMPHOCYTES % (AUTO) 16 % (22-44); MEAN CORPUSCULAR HEMOGLOBIN 31.7 pg (27.5-34.5); MEAN CORPUSCULAR HGB CONC 33.4 g/dL (33.2-36.2); MEAN PLATELET VOLUME 7.9 fL (7.4-10.4); MONOCYTES % (AUTO) 6 % (2-9); NEUTROPHILS % (AUTO) 76 % (42-75); PLATELET COUNT 190 x10^3/uL (130-400); RED BLOOD COUNT 5.08 x10^6/uL (4.38-5.82)
[2021-02-12 11:44] LABS: ANION GAP 6 mmol/L (5-15); CALCIUM 8.8 mg/dL (8.5-10.1); CHLORIDE 111 mmol/L (98-107); CREATININE 0.97 mg/dL (0.7-1.3)
[2021-02-12 11:47] LABS: INTERNATIONAL NORMALIZED RATIO 1.3 (0.93-1.1); PROTHROMBIN TIME 13.8 Seconds (9.6-11.5)
[2021-02-12] MEDS ORDERED: HOLD MEDICATION MC PRN (12:30)
[2021-02-12] MEDS ORDERED: HYDROcodone/APAP 5/325 TABLET PO PRN (12:30)
[2021-02-12 14:00] VITALS: BP 109/63
[2021-02-12 19:24] VITALS: BP 114/80
[2021-02-12] MEDS: SODIUM CHLORIDE FLUSH 10ML SYR IVF SCH (20:05)
[2021-02-12] MEDS: CEFAZOLIN PMX 1GM/50ML 50 ML IVPB SCH (20:05)
[2021-02-12] MEDS: LISINOPRIL 5 MG TABLET PO SCH (20:05)
[2021-02-12] MEDS ORDERED: ZOLPIDEM 5MG TABLET PO PRN (21:00)
[2021-02-13 02:16] VITALS: BP 134/83
[2021-02-13] MEDS: SODIUM CHLORIDE 0.9% 1,000 ML IV SCH (03:22)
[2021-02-13] MEDS: CEFAZOLIN PMX 1GM/50ML 50 ML IVPB SCH (04:39)
[2021-02-13 06:53] VITALS: BP 120/86
[2021-02-13] MEDS: LISINOPRIL 5 MG TABLET PO SCH (08:18)
[2021-02-13] MEDS: SODIUM CHLORIDE FLUSH 10ML SYR IVF SCH (08:19)
[2021-02-13] MEDS ORDERED: LORATADINE 10 MG TABLET PO SCH (09:00)
[2021-02-13] MEDS ORDERED: TAMSULOSIN 0.4 MG CAP.ER.24H PO SCH (09:00)
== END 2021-02-13 09:56 | disposition home or self-care (01) ==
LOC: CACL 10:10 → ORIP 12:29 → 5SO 15:43 → DCLOUNGE 02-13 09:43
PROVIDERS: ADMIT Internal Medicine Cardiovascular Disease; ATTEND Internal Medicine Cardiovascular Disease
DX: I49.5 Sick sinus syndrome (principal); R55 Syncope and collapse; I10 Essential (primary) hypertension; I48.0 Paroxysmal atrial fibrillation; Z79.01 Long term (current) use of anticoagulants; Z79.899 Other long term (current) drug therapy; Z95.2 Presence of prosthetic heart valve
CPT/HCPCS: 33208; 36005; 36415; 71045; 80048; 85025; 85610; 93005; 96365; 96366; 99156; C1779; C1785; C1892; G0378; J0690; J2250; J3010; J3490; Q9967

== ENCOUNTER 2021-02-28 20:34 | Emergency (ER) | payer MEDICARE ==
[~2021-02-28] VITALS: Ht 180.3 cm; Wt 86.8 kg
[~2021-02-28 20:34] MED LIST changes: +APIX5TAB PO; +IPRA12.9 INH
[2021-02-28] MEDS ORDERED: SODIUM CHLORIDE FLUSH 10ML SYR IVF ONE (21:00)
[2021-02-28 21:27] LABS: BASOPHILS % (AUTO) 1 % (0-1); EOSINOPHILS % (AUTO) 2 % (1-7); LYMPHOCYTES % (AUTO) 19 % (22-44); MEAN CORPUSCULAR HEMOGLOBIN 31.7 pg (27.5-34.5); MEAN CORPUSCULAR HGB CONC 33.6 g/dL (33.2-36.2); MONOCYTES % (AUTO) 7 % (2-9); NEUTROPHILS % (AUTO) 72 % (42-75); PLATELET COUNT 221 x10^3/uL (130-400); RED BLOOD COUNT 5.32 x10^6/uL (4.38-5.82); RED CELL DISTRIBUTION WIDTH 13.9 % (9.4-14.8)
[2021-02-28 21:39] LABS: ALBUMIN 3.7 g/dL (3.4-5.0); ANION GAP 8 mmol/L (5-15); CALCIUM 9.9 mg/dL (8.5-10.1); CHLORIDE 105 mmol/L (98-107)
[2021-02-28 21:45] LABS: CREATININE 1.15 mg/dL (0.7-1.3); TROPONIN I < 0.015 ng/mL (0.000-0.045)
[2021-02-28] MEDS ORDERED: PROPOFOL 10 MG/ML, 20ML ONE (21:53)
[2021-02-28] MEDS ORDERED: PROPOFOL 10 MG/ML, 20ML IVPush ONE (22:00)
--- NOTE | 2021-02-28 22:35 | NUR ---
PT SUCCESSFULLY CARDIOVERTED. PT SNORING AND MAINTAINING AIRWAY AT THIS TIME. PT RECIEVED A TOTAL OF 100 MG PROPOFOL. PT ON ALL MONITORS, RN AT BEDSIDE
--- NOTE | 2021-02-28 23:00 | NUR ---
pt wide awake, talking with pt, vss, pt on all monitors, ekg taken.
[2021-02-28 23:42] VITALS: BP 102/76
== END 2021-03-01 00:02 | disposition home or self-care (01) ==
LOC: ED 21:08
DX: I48.91 Unspecified atrial fibrillation (principal); R00.2 Palpitations; I10 Essential (primary) hypertension; K21.9 Gastro-esophageal reflux disease without esophagitis; I48.92 Unspecified atrial flutter
CPT/HCPCS: 36415; 71045; 80048; 82040; 84484; 85025; 92960; 93005; 99152

== ENCOUNTER 2021-04-09 18:43 | Emergency (ER) | payer MEDICARE ==
[~2021-04-09] VITALS: Ht 175.3 cm; Wt 97.5 kg
--- NOTE | 2021-04-09 19:10 | NUR ---
"THE SMOKE HAS MY ASTHMA UP THEN I WENT INTO A-fIB." Hx of afIB (CARDIOVERTED 4 TIMES IN THE LAST YEAR (HAS ABLATION SCHEDULED); has a pacemaker (FOR BRADYCARDIC MOMENTS) . Heart racing and SOB x1.5 hrs ago. Takes eliquis. TAKES BID-LAST DOSE THIS AFTERNOON ECG IN TRIAGE-AFIB WITH RVR 120-190- ERRATIC GOOD MENTATION/COLOR STRAIGHT BACK TO ROOM PLACED ON PADS/LARGE BORE PLACED-ERP TO ROOM TO CARDIOVERT ONCE LABS BACK SEES DR. LOWRY (COMPUTER ENGINEER) LUNGS CLEAR/NO WHEEZES Addendum: 04/09/21 at 1950 by RFRUHLING correction-aflutter not afib
[2021-04-09 19:18] LABS: BASOPHILS % (AUTO) 1 % (0-1); EOSINOPHILS % (AUTO) 1 % (1-7); LYMPHOCYTES % (AUTO) 19 % (22-44); MEAN CORPUSCULAR HEMOGLOBIN 31.7 pg (27.5-34.5); MEAN CORPUSCULAR HGB CONC 33.6 g/dL (33.2-36.2); MEAN PLATELET VOLUME 7.9 fL (7.4-10.4); MONOCYTES % (AUTO) 8 % (2-9); NEUTROPHILS % (AUTO) 71 % (42-75); PLATELET COUNT 221 x10^3/uL (130-400); RED BLOOD COUNT 5.18 x10^6/uL (4.38-5.82); RED CELL DISTRIBUTION WIDTH 13.5 % (9.4-14.8)
[2021-04-09 19:31] LABS: CHLORIDE 108 mmol/L (98-107)
[2021-04-09 19:46] LABS: ALANINE AMINOTRANSFERASE 41 U/L (12-78); ALBUMIN 3.5 g/dL (3.4-5.0); ALKALINE PHOSPHATASE 76 U/L (45-117); ANION GAP 9 mmol/L (5-15); BILIRUBIN,TOTAL 0.5 mg/dL (0.2-1.0); CALCIUM 9.1 mg/dL (8.5-10.1); CREATININE 1.07 mg/dL (0.7-1.3); TOTAL PROTEIN 7.3 g/dL (6.4-8.2); TROPONIN I < 0.015 ng/mL (0.000-0.045)
[2021-04-09] MEDS ORDERED: PROPOFOL 10 MG/ML, 20ML ONE (20:04)
--- NOTE | 2021-04-09 20:25 | NUR ---
2010-consent 2019-time out 2019.5-50mg of propofol 2020- 200 joules synchronized cardioversion 2021- awake alert, repeat ecg (normal rhythm)
[2021-04-09] MEDS ORDERED: PROPOFOL 10 MG/ML, 20ML IVPush ONE (20:30)
[2021-04-09 20:55] VITALS: BP 116/73
== END 2021-04-09 20:57 | disposition home or self-care (01) ==
LOC: ED 19:13
DX: I48.0 Paroxysmal atrial fibrillation (principal); R07.89 Other chest pain; R06.02 Shortness of breath; R00.0 Tachycardia, unspecified
CPT/HCPCS: 36415; 71045; 80053; 83735; 84443; 84484; 85025; 92960; 93005; 99291

== ENCOUNTER 2021-04-18 01:46 | Emergency (ER) | payer MEDICARE ==
[~2021-04-18] VITALS: Ht 175.3 cm; Wt 90.0 kg
[2021-04-18] MEDS ORDERED: PROPOFOL 10 MG/ML, 20ML ONE (02:20)
[2021-04-18] MEDS ORDERED: PROPOFOL 10 MG/ML, 20ML IVPush ONE (02:30)
[2021-04-18] MEDS ORDERED: SODIUM CHLORIDE FLUSH 10ML SYR IVF ONE (02:30)
[2021-04-18 02:33] LABS: BASOPHILS % (AUTO) 1 % (0-1); EOSINOPHILS % (AUTO) 2 % (1-7); LYMPHOCYTES % (AUTO) 22 % (22-44); MEAN CORPUSCULAR HEMOGLOBIN 31.8 pg (27.5-34.5); MEAN CORPUSCULAR HGB CONC 33.7 g/dL (33.2-36.2); MEAN PLATELET VOLUME 8.1 fL (7.4-10.4); MONOCYTES % (AUTO) 8 % (2-9); NEUTROPHILS % (AUTO) 67 % (42-75); PLATELET COUNT 240 x10^3/uL (130-400); RED CELL DISTRIBUTION WIDTH 13.9 % (9.4-14.8)
[2021-04-18 02:42] LABS: ALANINE AMINOTRANSFERASE 36 U/L (12-78); ALBUMIN 3.3 g/dL (3.4-5.0); ANION GAP 8 mmol/L (5-15); CALCIUM 9.5 mg/dL (8.5-10.1); CHLORIDE 109 mmol/L (98-107); CREATININE 1.06 mg/dL (0.7-1.3)
[2021-04-18 02:44] LABS: ALKALINE PHOSPHATASE 82 U/L (45-117); BILIRUBIN,TOTAL 0.4 mg/dL (0.2-1.0); TOTAL PROTEIN 7.1 g/dL (6.4-8.2)
--- NOTE | 2021-04-18 03:22 | NUR ---
TASK RN: SYNCRONIZED CARDIOVERSION COMPLETED UNDER PROCEDURAL SEDATION; SEE SEDATION PACKET PAPERWORK FOR DETAILS. REPEAT EKG DONE AFTER CARDIOVERSION AND PRESENTED TO ERP. SINUS ARRYTHMIA RATE MID 80'S TO MID 90'S NOTED ON MONITOR. PT. IS RECOVERED BACK TO BASELINE AT THIS TIME. AT BS FOR SUPPORT. ALL MONITORS IN PLACE. ALL SAFETY MEASURES OBSERVED.
--- NOTE | 2021-04-18 03:34 | NUR ---
REPORT BACK TO HEENA FRIED TO RE-ASSUME CARE OF PT.
--- NOTE | 2021-04-18 03:45 | NUR ---
DURING PROCEDURAL SEDATION DR. MANCIA ADMIN 80MG PROPOFOL. 120MG OF PROPOFOL WASTED WITH KERMIT ROCA RN A WITNESS.
--- NOTE | 2021-04-18 04:00 | NUR ---
Patient given discharge instructions and they have confirmed that they understand the instructions. Patient ambulatory with steady gait. NAD, all questions answered appropriately, denies additional needs at this time. No personal belongings left in room after discharge.
[2021-04-18 04:08] VITALS: BP 116/87
== END 2021-04-18 04:10 | disposition home or self-care (01) ==
LOC: ED 02:15
DX: I48.92 Unspecified atrial flutter (principal); R00.2 Palpitations; I10 Essential (primary) hypertension; I48.91 Unspecified atrial fibrillation; K21.9 Gastro-esophageal reflux disease without esophagitis
CPT/HCPCS: 36415; 80053; 83735; 85025; 92960; 93005; 99285; J2704

== ENCOUNTER 2021-05-09 12:15 | Day surgery (SDC) | payer MEDICARE ==
[~2021-05-09] VITALS: Ht 175.3 cm; Wt 85.5 kg
[2021-05-09] MEDS ORDERED: CLOB15CR19 TP (12:54)
[2021-05-09] MEDS ORDERED: TAMS-11 PO (12:54)
[2021-05-09] MEDS ORDERED: TIOT4MIS5 INH (12:54)
[2021-05-09] MEDS ORDERED: TRIA10.8 NS (12:54)
[2021-05-09 12:58] VITALS: BP 122/85
[2021-05-09] MEDS ORDERED: SODIUM CHLORIDE 0.9% 1,000 ML IV SCH (13:00)
[2021-05-09] MEDS ORDERED: PLEASE ENTER HEIGHT AND WEIGHT MC SCH (13:00)
[2021-05-09 13:06] LABS: BASOPHILS % (AUTO) 1 % (0-1); EOSINOPHILS % (AUTO) 1 % (1-7); LYMPHOCYTES % (AUTO) 15 % (22-44); MEAN CORPUSCULAR HEMOGLOBIN 31.8 pg (27.5-34.5); MEAN PLATELET VOLUME 7.3 fL (7.4-10.4); MONOCYTES % (AUTO) 6 % (2-9); NEUTROPHILS % (AUTO) 77 % (42-75); PLATELET COUNT 211 x10^3/uL (130-400); RED BLOOD COUNT 4.86 x10^6/uL (4.38-5.82); RED CELL DISTRIBUTION WIDTH 13.5 % (9.4-14.8)
[2021-05-09 13:19] LABS: ALANINE AMINOTRANSFERASE 33 U/L (12-78); ALBUMIN 3.8 g/dL (3.4-5.0); ANION GAP 8 mmol/L (5-15); CALCIUM 9.1 mg/dL (8.5-10.1); CHLORIDE 109 mmol/L (98-107); CREATININE 0.91 mg/dL (0.7-1.3); INTERNATIONAL NORMALIZED RATIO 1.03 (0.93-1.1)
[2021-05-09 13:21] LABS: ALKALINE PHOSPHATASE 73 U/L (45-117); BILIRUBIN,TOTAL 0.5 mg/dL (0.2-1.0)
[2021-05-09] MEDS ORDERED: ALBUTEROL HFA 90 MCG/SPRAY ONE (14:00)
[2021-05-09] MEDS ORDERED: FENTANYL PF 250 MCG/5ML ONE (14:00)
[2021-05-09] MEDS ORDERED: VASOPRESSIN 20 UNIT/ML, 1ML ONE (14:52)
[2021-05-09] MEDS ORDERED: PROPOFOL 10 MG/ML, 20ML ONE (14:52)
[2021-05-09] MEDS ORDERED: EPHEDRINE 50 MG/ML, 1ML ONE (14:52)
[2021-05-09] MEDS ORDERED: ISOPROTERENOL 0.2MG/ML, 5ML ONE (15:13)
[2021-05-09] MEDS ORDERED: MIDAZOLAM 1 MG/ML, 2ML IV PRN (17:30)
[2021-05-09] MEDS ORDERED: PROMETHAZINE 25 MG/ML, 1ML IVPush PRN (17:30)
[2021-05-09] MEDS ORDERED: ALBUTEROL SULFATE 2.5 MG/3 ML NPPB PRN (17:30)
[2021-05-09] MEDS ORDERED: ONDANSETRON 2MG/ML, 2ML IVPush PRN (17:30)
[2021-05-09] MEDS ORDERED: HYDROmorphone 1 MG/ML, 1ML INJ IVPush PRN (17:30)
[2021-05-09] MEDS ORDERED: hydrALAzine 20 MG/ML, 1ML IV PRN (17:30)
[2021-05-09] MEDS ORDERED: ACETAMINOPHEN 325 MG TABLET PO PRN (17:30)
[2021-05-09] MEDS ORDERED: OXYcodone 5 MG/5 ML ORAL.SOL UDC PO PRN (17:30)
[2021-05-09] MEDS ORDERED: DIAZEPAM 5 MG/ML, 2ML IVPush PRN (17:30)
[2021-05-09] MEDS ORDERED: LABETALOL 5MG/ML, 20ML IV PRN (17:30)
[2021-05-09] MEDS ORDERED: EPHEDRINE 50 MG/ML, 1ML IVPush PRN (17:30)
[2021-05-09] MEDS ORDERED: PROMETHAZINE 12.5 MG SUPP PR PRN (17:30)
[2021-05-09] MEDS ORDERED: FENTANYL PF 100 MCG/2ML IV PRN (17:30)
[2021-05-09] MEDS ORDERED: MEPERIDINE/PF 25MG/0.5ML IVPush PRN (17:30)
[2021-05-09] MEDS ORDERED: DIPHENHYDRAMINE 50 MG/ML, 1ML IVPush PRN ×2 (17:30)
[2021-05-09] MEDS ORDERED: MEPERIDINE/PF 25MG/ML,1ML ONE (17:32)
[2021-05-09 19:17] VITALS: BP 130/74
== END 2021-05-09 22:11 | disposition home or self-care (01) ==
LOC: CACL 12:15 → 5SO 18:14 → CACL 22:11
PROVIDERS: ATTEND Internal Medicine Clinical Cardiac Electrophysiology
DX: I48.92 Unspecified atrial flutter (principal); I48.0 Paroxysmal atrial fibrillation; I10 Essential (primary) hypertension; J45.909 Unspecified asthma, uncomplicated; Z79.01 Long term (current) use of anticoagulants; Z79.899 Other long term (current) drug therapy; Z88.8 Allergy status to other drugs, medicaments and biological substances; Z20.822 Contact with and (suspected) exposure to COVID-19; Z98.890 Other specified postprocedural states
CPT/HCPCS: 36415; 71046; 80053; 85025; 85610; 85730; 87635; 93005; 93613; 93621; 93623; 93653; C1730; C1766; C1894; C2630; J2175; J2704; J3010; G0378